=== PATIENT | male | born 1990 | race Caucasian/White ===

== ENCOUNTER → 2016-06-30 | Outpatient (CLI) | payer BC ==
[2016-06-30 16:03] LABS: MEAN PLATELET VOLUME 9.3 FL (6.0-9.5); WHITE BLOOD COUNT 6.49 10^3uL (4.0-11.0)
[2016-06-30 16:40] LABS: ALBUMIN 4.5 g/dL (3.4-5.0); ANION GAP 15.9 MEQ/L (3-15); TOTAL PROTEIN 7.4 g/dL (6.4-8.5)
== END ==
LOC: LAB 15:40
PROVIDERS: ATTEND Dermatology
DX: L64.9 Androgenic alopecia, unspecified (principal)
CPT/HCPCS: 36415; 80053; 84439; 84443; 84481; 85027